=== PATIENT | male | born 1955 | race Hispanic/Latino ===

== ENCOUNTER → 2020-06-18 | Outpatient (CLI) | payer OTHER ==
[~2020-06-18] MED LIST: ACET-2113 PO; AMIO200T6 PO; ASPI-556 PO; CHOL4PAC21 PO; FISH1CAP49 PO; FURO40TA5 PO; GEMF600T5 PO; GLIP5TAB11 PO; ISOS60TA4 PO; LORA0.5T2 PO; LOSA50TA64 PO; METF-446 PO; METO-409 PO; NITR0.4T SL; OMEP20TA25 PO; PRAV40TA3 PO; RIVA20TA PO; [UNRECOGNIZED DRUG - CODE] PO
== END | disposition home or self-care (01) ==
LOC: RAH 06-13 12:44
PROVIDERS: ATTEND Internal Medicine Cardiovascular Disease
DX: J98.11 Atelectasis (principal); I51.7 Cardiomegaly; R05 Cough; Z95.0 Presence of cardiac pacemaker; Z98.890 Other specified postprocedural states
CPT/HCPCS: 71250

== ENCOUNTER 2023-04-05 05:44 | Day surgery (SDC) | payer OTHER ==
[2023-04-01 12:59] LABS: BASOPHILS # (AUTO) 0.03 K/uL (0.00-0.20); BASOPHILS % (AUTO) 0.4 % (0.0-5.0); EOSINOPHILS # (AUTO) 0.06 K/uL (0.00-0.70); EOSINOPHILS % (AUTO) 0.9 % (0.0-8.0); HEMATOCRIT 43.2 % (42-54); IMMATURE GRANULOCYTE ABSOLUTE 0.02 K/uL (0-1); LYMPHOCYTES # (AUTO) 1.8 K/uL (1.0-4.8); LYMPHOCYTES % (AUTO) 24.9 % (21.0-51.0); MEAN CORPUSCULAR HEMOGLOBIN 29.4 pg (27.0-33.0); MEAN CORPUSCULAR HGB CONC 32.6 g/dL (32.0-36.0); MEAN CORPUSCULAR VOLUME 90.2 fL (79-99); MONOCYTES # (AUTO) 0.5 K/uL (0.1-1.0); MONOCYTES % (AUTO) 6.8 % (3.0-13.0); NEUTROPHILS # (AUTO) 4.7 K/uL (1.8-7.7); NEUTROPHILS % (AUTO) 66.7 % (40.0-77.0); PLATELET COUNT (AUTO) 224 K/uL (130-400); RED BLOOD CELL COUNT(AUTO) 4.79 MIL/uL (4.50-6.20); RED CELL DISTRIBUTION WIDTH 14.1 % (11.0-15.5)
[2023-04-01 13:05] LABS: CREATININE 1.1 mg/dL (0.5-1.5); POTASSIUM 4.4 mmol/L (3.5-5.1)
[2023-04-01 13:06] LABS: INR 0.98 (0.85-1.15); PROTHROMBIN TIME 11.4 SEC (9.6-11.6)
[2023-04-01 13:07] LABS: PARTIAL THROMBOPLASTIN TIME 37.6 SEC (26.3-35.5)
[2023-04-01 13:34] VITALS: BP 127/55; PULSE 73; RESP 18
[2023-04-05] VITALS (9 sets, daily range): BP systolic 92–110; BP diastolic 49–53; PULSE 70–82; RESP 13–18
[~2023-04-05] VITALS: Ht 180.3 cm; Wt 110.0 kg
[~2023-04-05 05:44] MED LIST changes: +AMIO100T4 PO; -AMIO200T6 PO; -ASPI-556 PO; +BYDUREON SQ; +CARV25TA PO; -CHOL4PAC21 PO; +EMPA25TA PO; +FLUT16H NASAL; +FURO20TA4 PO; -FURO40TA5 PO; -GEMF600T5 PO; +GLIP10TA9 PO; -GLIP5TAB11 PO; -ISOS60TA4 PO; -LORA0.5T2 PO; -LOSA50TA64 PO; -METF-446 PO; -METO-409 PO; +MONT-39 PO; -OMEP20TA25 PO; +PANT40TA54 PO; -PRAV40TA3 PO; +ROSU40TA21 PO; +SACU1TAB7 PO; +SPIR25TA6 PO; +TRAV5DRO OP; -[UNRECOGNIZED DRUG - CODE] PO
[2023-04-05] MEDS ORDERED: 0.9%NACL 1000ML 1,000 ML IV ONE (06:11)
[2023-04-05] MEDS ORDERED: LIDOCAINE HCL 1% MDV 50ML VIAL ONE (07:12)
[2023-04-05] MEDS ORDERED: MEPERIDINE-PF 25 MG/ML SYG ONE ×2 (07:12→07:56)
[2023-04-05] MEDS ORDERED: IOHEXOL-350 50ML VIAL IV ONE (07:13)
[2023-04-05] MEDS ORDERED: MIDAZOLAM HCL 1 MG/ML 2ML VIAL ONE ×2 (07:13→07:56)
[2023-04-05] MEDS ORDERED: BUPIVACAINE/PF 0.25% 30ML VIAL IJ ONE (07:13)
[2023-04-05] MEDS ORDERED: CEFAZOLIN SODIUM 1 GM VIAL ONE (07:27)
[2023-04-05] MEDS ORDERED: BACITRACIN 1 EACH PACKET TP ONE (08:19)
[2023-04-05] MEDS ORDERED: ACETAMINOPHEN WITH CODEINE 1 TAB TAB PO PRN (08:30)
[2023-04-05] MEDS ORDERED: ACETAMINOPHEN 500 MG TABLET PO PRN (08:30)
[2023-04-05] MEDS ORDERED: TRAM50TA4 PO (08:36)
== END 2023-04-05 11:30 | disposition home or self-care (01) ==
LOC: DAH 05:44
PROVIDERS: ATTEND Internal Medicine Cardiovascular Disease
DX: Z45.02 Encounter for adjustment and management of automatic implantable cardiac defibrillator (principal); I25.5 Ischemic cardiomyopathy; I48.0 Paroxysmal atrial fibrillation; I48.92 Unspecified atrial flutter; I10 Essential (primary) hypertension; E11.9 Type 2 diabetes mellitus without complications; E78.5 Hyperlipidemia, unspecified; E66.9 Obesity, unspecified; I25.2 Old myocardial infarction; Z79.01 Long term (current) use of anticoagulants; Z90.49 Acquired absence of other specified parts of digestive tract; Z83.3 Family history of diabetes mellitus; Z82.49 Family history of ischemic heart disease and other diseases of the circulatory system; Z68.34 Body mass index [BMI] 34.0-34.9, adult
CPT/HCPCS: 80048; 85025; 85610; 85730; 36415; 93005; 33264; 82948 ×2; C1882; J0690; J7030; J3490 ×2; J2250 ×2; J2175 ×2; A4215; A6251; A4222; A4221; A4663; A4216; A6258; A4606; A4223 ×3; 99156; 99157; Q9967

== ENCOUNTER → 2023-06-07 | Outpatient (CLI) | payer OTHER ==
[~2023-06-07] MED LIST changes: +TRAM50TA4 PO
== END | disposition home or self-care (01) ==
LOC: SHCH 13:51
PROVIDERS: ATTEND Internal Medicine Cardiovascular Disease
DX: I35.0 Nonrheumatic aortic (valve) stenosis (principal); I25.5 Ischemic cardiomyopathy; I11.9 Hypertensive heart disease without heart failure; E78.5 Hyperlipidemia, unspecified; E11.9 Type 2 diabetes mellitus without complications
CPT/HCPCS: 93306

== ENCOUNTER 2024-10-02 06:10 | Day surgery (SDC) | payer OTHER ==
[2024-09-28 08:33] LABS: BASOPHILS # (AUTO) 0.03 K/uL (0.00-0.20); BASOPHILS % (AUTO) 0.4 % (0.0-5.0); EOSINOPHILS # (AUTO) 0.09 K/uL (0.00-0.70); EOSINOPHILS % (AUTO) 1.1 % (0.0-8.0); HEMATOCRIT 37.4 % (42-54); IMMATURE GRANULOCYTE ABSOLUTE 0.02 K/uL (0-1); LYMPHOCYTES # (AUTO) 1.2 K/uL (1.0-4.8); LYMPHOCYTES % (AUTO) 14.3 % (21.0-51.0); MEAN CORPUSCULAR HEMOGLOBIN 28.9 pg (27.0-33.0); MEAN CORPUSCULAR HGB CONC 32.4 g/dL (32.0-36.0); MEAN CORPUSCULAR VOLUME 89.3 fL (79-99); MONOCYTES # (AUTO) 0.6 K/uL (0.1-1.0); MONOCYTES % (AUTO) 7.1 % (3.0-13.0); NEUTROPHILS # (AUTO) 6.2 K/uL (1.8-7.7); NEUTROPHILS % (AUTO) 76.9 % (40.0-77.0); PLATELET COUNT (AUTO) 258 K/uL (130-400); RED BLOOD CELL COUNT(AUTO) 4.19 MIL/uL (4.50-6.20); RED CELL DISTRIBUTION WIDTH 14.2 % (11.0-15.5)
[2024-09-28 08:42] LABS: CREATININE 1.3 mg/dL (0.5-1.3); POTASSIUM 4.5 mmol/L (3.5-5.1)
[2024-09-28 08:45] LABS: INR 1.54 (0.85-1.15); PROTHROMBIN TIME 15.6 SEC (9.6-11.6)
[2024-09-28 08:46] LABS: PARTIAL THROMBOPLASTIN TIME 53.8 SEC (26.3-35.5)
[2024-09-28 11:09] VITALS: BP 111/47; PULSE 82; RESP 18; TEMP 97.9
--- NOTE | 2024-09-28 15:20 | EKG ---
[facility] Test Date: 2024-09-28 Test Time: 08:22:21 Pat Name: SOLOMON CAMACHO Department: [facility] Room: [facility] Gender: M Data Entry: [id number] : 1955 Requested By: YAJAIRA PADILLA Order Number: [id number] Reading MD: Heriberto Forde Measurements Intervals [place] Rate: 96 P: 0 RI: 0 QRS: 45 QRSD: 203 T: 171 QT: 507 QTc: 640 Interpretive Statements Afib/flut and V-paced complexes Biventricular paced rhythm Compared to ECG 08/13/2024 18:33:19 Ventricular premature complex(es) no longer present AV dual-paced complex(es) or rhythm no longer present Electronically Signed On 10-03-2024 07:15:19 CDT by Heriberto Forde Please click the below link to view image of tracing.
--- NOTE | 2024-10-01 10:02 | NUR ---
RE: LABS REPORTED PT/INR/PTT RESULTS TO DR PADILLA, NO NEW ORDERS RECEIVED.
[2024-10-02] VITALS (17 sets, daily range): BP systolic 97–126; BP diastolic 50–59; PULSE 70–86; RESP 15–21; TEMP 97–97.6
[~2024-10-02] VITALS: Ht 180.3 cm; Wt 111.9 kg
[~2024-10-02 06:10] MED LIST changes: -ACET-2113 PO; -AMIO100T4 PO; -BYDUREON SQ; +CARV12.511 PO; -CARV25TA PO; +DRON400T7 PO; +FINA5TAB41 PO; -FISH1CAP49 PO; -FLUT16H NASAL; +GLIP10TA16 PO; -GLIP10TA9 PO; +PANT20TA18 PO; -PANT40TA54 PO; -ROSU40TA21 PO; +ROSU40TA88 PO; +TAMS-55 PO; +TIRZ5PEN SQ; -TRAM50TA4 PO; -TRAV5DRO OP
[2024-10-02] MEDS: 0.9%NACL 1000ML 1,000 ML IV SCH (07:04)
--- NOTE | 2024-10-02 08:16 | NUR ---
skin integrity: dr. saha viewed rash to right groin area, ok to proceed with procedure.
[2024-10-02] MEDS ORDERED: LIDOCAINE HCL 400MG/20ML VIAL ONE ×2 (11:34→12:40)
[2024-10-02] MEDS ORDERED: HEParin 10,000 UNIT/10ML (1,000 UNIT/ML) VIAL ONE (11:34)
[2024-10-02] MEDS ORDERED: SODIUM BICARB 50MEQ 50ML VIAL 50 ML ONE (11:35)
[2024-10-02] MEDS ORDERED: HEParin-NS 1,000 UNIT/500 ML 500 ML IV ONE ×2 (11:35→12:16)
[2024-10-02] MEDS ORDERED: MIDAZOLAM HCL 1 MG/ML 2ML VIAL ONE (11:43)
[2024-10-02] MEDS ORDERED: proPOFol 10 MG/ML 20ML VIAL IV ONE (11:45)
[2024-10-02] MEDS ORDERED: rocuRONium bROMide 10MG/1ML 5ML VL ONE (11:45)
[2024-10-02] MEDS ORDERED: FENTanyl CITRate PF 50 MCG/1 ML 2ML VIAL ONE ×2 (11:46→14:13)
[2024-10-02] MEDS ORDERED: phenylEPHRINE HCL 10 MG/ML 1ML VIAL IV ONE (12:04)
[2024-10-02] MEDS ORDERED: ePHEDrine SULFate 50 MG/ML AMPULE ONE (12:43)
[2024-10-02] MEDS ORDERED: ISOPROTERENOL HCL 0.2 MG/ML AMP/VIAL/BAG ONE (13:38)
[2024-10-02] MEDS ORDERED: GLYCOPYRROLATE 0.2 MG/ML 5 ML VIAL ONE (14:12)
[2024-10-02] MEDS ORDERED: ondanSETRON 4MG INJ ONE (14:13)
[2024-10-02] MEDS ORDERED: NEOSTIGMINE METHYLSULFATE 1MG/ML IV ONE (14:13)
[2024-10-02] MEDS ORDERED: AMIOdarone 150MG VIAL ONE (14:35)
--- NOTE | 2024-10-02 17:44 | NUR ---
Bilateral groin sites clean, dry and intact. No sign of bleeding, bruising or hematoma. Right groin remains with mildly red rash skin intact. Full and complete discharge instructions given to Patient and Family both verbally and in writing. All questions answered. PIV dc'd with catheter tip intact. Patient aox4. Denies any discomfort or pressure. EKG done and viewed by Dr. Hernandez. Son at side appearing supportive. W/C to POV to home with Son.
--- NOTE | 2024-10-03 06:49 | EKG ---
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
== END 2024-10-02 18:30 | disposition home or self-care (01) ==
LOC: DAH 06:10
PROVIDERS: ATTEND Internal Medicine Cardiovascular Disease
DX: I47.29 Other ventricular tachycardia (principal); I49.3 Ventricular premature depolarization; I10 Essential (primary) hypertension; I25.2 Old myocardial infarction; I25.5 Ischemic cardiomyopathy; N40.0 Benign prostatic hyperplasia without lower urinary tract symptoms; E11.9 Type 2 diabetes mellitus without complications; I48.0 Paroxysmal atrial fibrillation; I45.10 Unspecified right bundle-branch block; E78.5 Hyperlipidemia, unspecified; E66.9 Obesity, unspecified; Z68.34 Body mass index [BMI] 34.0-34.9, adult; Z95.810 Presence of automatic (implantable) cardiac defibrillator; Z95.1 Presence of aortocoronary bypass graft; Z90.49 Acquired absence of other specified parts of digestive tract; Z79.899 Other long term (current) drug therapy; Z98.890 Other specified postprocedural states
CPT/HCPCS: 80048; 85025; 85610; 85730; 36415; 93005 ×2; 93620; 93623; 93287; 82948 ×2; C1894 ×6; C1732; C1730 ×2; A4649 ×2; J3010 ×2; J3490 ×7; J7030; J1644 ×3; J2250; J2704; J2405; J2710; J2371; J0282; A4215; A4222; A4221; A4663; A4216; A4606; C1760 ×5; A4223 ×3

== ENCOUNTER 2024-11-08 02:54 | Emergency (ER) | payer OTHER ==
[~2024-11-08] VITALS: Ht 180.3 cm; Wt 113.9 kg
[2024-11-08] MEDS: hydroMORPHone 0.5 MG SYG (0.5MG/0.5ML) IVP ONE (03:28)
[2024-11-08] MEDS: CYCLOBENZAPRINE HCL 10 MG TABLET PO ONE (03:28)
[2024-11-08] MEDS: Solu-medROL 40MG VIAL IVP ONE (03:28)
[2024-11-08 03:47] VITALS: BP 132/65; PULSE 88; RESP 15; TEMP 98.5; O2SAT 99
--- NOTE | 2024-11-08 04:07 | ERN ---
ED Note History of Present Illness Stated Complaint: C/O MID BACK PAIN WITH SOB Chief Complaint: Back Pain-No Injury Time Seen by MD: 03:04 Dictation: This is a 69-year-old morbidly obese male who presented to the emergency room for evaluation of back pain. He stated that he has had right lower back pain for many months and the pain is intensified in the past 1 week. He was seen by his primary care physician who apparently did a urinalysis and told him that his kidney function was okay and there was no evidence of any UTI. They gave him pain medicine. He comes back in today stating that the pain was worse and he could not sleep or get comfortable in any position. He denied any tingling numbness weakness of the legs. No history of any fall. No bladder or bowel incontinence. Pain is mostly located in the right lumbar area. He stated that when he tries to take a deep breath the back pain is worse. No burning micturition no hematuria or dysuria. Temperature 97.6� pulse 78 respirations 20 blood pressure 134/72 with a pulse oximetry of 95% on room air His chronic medical problems include diabetes mellitus, hypertension, coronary artery disease, coronary artery bypass surgery in 2007, atrial fibrillation, AICD pacemaker placement Allergies: Coded Allergies: No Known Allergies (Unverified Allergy, Unknown, 08/09/14) Home Meds Reported Medications Empagliflozin (Jardiance) 25 Mg Tablet, 25 MG PO DAILY, TAB 09/28/24 Dronedarone Hydrochloride (Multaq) 400 Mg Tablet, 400 MG PO BID, TAB 09/28/24 Tamsulosin HCl (Flomax) 0.4 Mg Cap.er.24h, 0.4 MG PO HS, CAPSULE.DR 08/09/24 Finasteride (Finasteride) 5 Mg Tablet, 5 MG PO HS, TAB 08/09/24 Carvedilol (Carvedilol) 12.5 Mg Tablet, 12.5 MG PO BID, TAB 08/09/24 Tirzepatide (Mounjaro) 5 Mg/0.5 Ml Pen.injctr, 5 MG SQ QWEEK Tuesday08/09/24 Pantoprazole Sodium (Pantoprazole Sodium) 20 Mg Tablet.dr, 20 MG PO DAILY, TAB 08/09/24 Glipizide (Glipizide) 10 Mg Tablet, 20 MG PO DAILY, TAB 04/04/23 Rosuvastatin Calcium (Rosuvastatin Calcium) 40 Mg Tablet, 40 MG PO HS, TAB 04/04/23 Montelukast Sodium (Montelukast Sodium) 10 Mg Tablet, 10 MG PO HS, TAB 04/04/23 Spironolactone (Spironolactone) 25 Mg Tablet, 25 MG PO DAILY, TAB 04/04/23 Sacubitril/Valsartan (Entresto 49 mg-51 mg Tablet) 49 Mg-51 Mg Tablet, 1 EACH PO BID, TAB 04/04/23 Glipizide (Glipizide) 10 Mg Tablet, 10 MG PO HS, TAB 04/04/23 Furosemide (Furosemide) 20 Mg Tablet, 20 MG PO DAILY, TAB 04/04/23 Nitroglycerin (Nitrostat) 0.4 Mg Tab.subl, 0.4 MG SL AD PRN for CHEST PAIN, TAB.SL 08/09/14 Rivaroxaban (Xarelto) 20 Mg Tablet, 20 MG PO HS, TAB 08/09/14 Past Medical History Past Medical History: Diabetes-Type II, Heart Disease, Hypertension Additional Past Medical Hx: OPEN HEART (2007); QUINDRUPLE BYPASS Surgical History: Pacer/AICD, Other Family History: Negative Social History: Negative RN Note Reviewed/Agreed w/PFSH: Yes Review of System Dictation Constitutional: Negative for fever,chills, and weight loss Eyes: Negative for injury, pain,redness, and discharge ENT: Negative for injury,pain or swelling Cardiovascular: Negative for chest pain, palpitations, and edema Respiratory: Negative for shortness of breath, cough, and wheezing, Abdomen/GI: Negative for abdominal pain, nausea, vomiting, diarrhea, and constipation Back: Negative for injury and positive for chronic back pain however got worse over the past few weeks : Negative for injury, bleeding and discharge MS/Extremity: Negative for injury and deformity Skin: Negative for rash, and discoloration Neuro: Negative for headache, weakness, numbness, tingling, and seizure Psych: Negative for suicide ideation, homicidal ideation, and hallucinations Initial Vital Sign VS Vital Signs Date Time Temp Pulse Resp B/P (MAP) Pulse Ox O2 Delivery O2 Flow Rate FiO2 11/08/24 02:57 97.5 78 20 134/72 95 Room Air 11/08/24 03:47 0 21 Physical Exam Dictation General: awake, alert, NAD morbidly obese male uncomfortable from pain and unable to position in the stretcher Head/Face: Normocephalic, atraumatic Eyes: PERRL, EOMI, vision at baseline ENT: oral cavity clear, TMs clear, no signs of infection Neck: Trachea midline, supple, no nuchal rigidity Cardiovascular: RRR, normal S1/S2, No MRGs, no JVD Respiratory: CTAB, no respiratory distress, No rales or wheezes Abdomen: Soft, non-tender, non-distended, normal bowel sounds, no guarding or rebound. Skin: Warm, dry, normal turgor, no rash Back-right psoas muscle spasm and tenderness in the lumbar area only to deep palpation and with movement MS/Extremity: Pulses equal, no cyanosis, neurovascular intact, FROM Neuro: COAx4, GCS 15, strength 5/5, CN 2-12 intact, normal cerebellar exam, normal gait, Psych: Normal behavior, mood, and affect normal Extremities-trace edema without any palpable cords, Homans sign is negative ED Course ED Course Orders Procedure Category Date Status Time Methylprednisolone PHA 11/08/24 Complete Succ 40mg (Solu-Medro 03:30 Cyclobenzaprine Hcl PHA 11/08/24 Complete (Cyclobenzaprine Hcl 03:30 Hydromorphone 0.5mg PHA 11/08/24 Complete Syg (Dilaudid 0.5mg 03:30 Current Medications Medications (Trade) Dose Ordered Sig/[place] Route PRN Reason Start Time Stop Time Status Last Admin Dose Admin Cyclobenzaprine HCl (Cyclobenzaprine HCl) 10 mg ONCE ONCE PO 11/08/24 03:30 11/08/24 03:31 DC 11/08/24 03:28 Hydromorphone HCl (DiLAUDid 0.5MG INJ) 0.5 mg ONCE ONCE IVP 11/08/24 03:30 11/08/24 03:31 DC 11/08/24 03:28 Methylprednisolone Sodium Succinate (Solu-medROL 40MG) 40 mg ONCE ONCE IVP 11/08/24 03:30 11/08/24 03:31 DC 11/08/24 03:28 Vital Signs Date Time Temp Pulse Resp B/P (MAP) Pulse Ox O2 Delivery O2 Flow Rate FiO2 11/08/24 03:47 98.4 88 15 132/65 99 Room Air* 0 21 11/08/24 02:57 97.5 78 20 134/72 95 Room Air I had a long discussion with him and daughter that something acute were sent the chronic back pain. No signs of any UTI by history and most of the history suggestive of musculoskeletal etiology. We will give a trial of steroid muscle relaxant and pain medication With all his multiple comorbidities we will avoid NSAIDs at this time. 4:34 a.m. patient admits to feeling significantly improved and is ready to be discharged to home. He already has Tylenol No. 3 prescription given by his PCP Medical Decision Making MDM MDM: Differential diagnosis: Lumbar radiculopathy, paraspinal muscle spasm, pyelonephritis, renal colic Rationale: Tests considered and ordered secondary to shared decision making inc lude: Previous outside records reviewed: Old ER visits. Risk of complication and/or morbidity or mortality of patient management: None Medications-Per medication reconciliation Need for hospitalization: Patient does not meet criteria for hospitalization. Need for emergency major/minor surgery: No There are no social concerns with this patient. Prescription drug management Prescriptions will include symptomatic care Patient's prior external medical records from other ER visits were reviewed by me as indicated. Prior testing and results from previous visits were reviewed. Prior tests were taken into account with medical decision making and resource utilization, independent historian/historians were used to obtain complete medical history. I independently interpreted the test that were performed, results were reviewed by me and considered findings on radiology if ordered. Medical management and examination interpretation discussions were had by me with other qualified healthcare professionals as indicated for the patient's care. Problem List Problem List: (1) Lumbar radiculopathy, chronic (2) Lumbar paraspinal muscle spasm DX & DISP Disposition: Discharge Departure Impression: Primary Impression: Lumbar radiculopathy, chronic Additional Impression: Lumbar paraspinal muscle spasm Condition: Stable Scripts Cyclobenzaprine HCl (Cyclobenzaprine HCl) 10 Mg Tablet 1 TAB PO TID for muscle spasms for 10 Days, #30 TAB 0 Refills Prov: MATTHEW MOSS MD 11/08/24 Prednisone (Prednisone) 20 Mg Tablet 1 TAB PO AD for 6 Days, #14 TAB 0 Refills TAKE 1 TAB BY MOUTH THREE TIMES PER DAY X3 DAYS, THEN TAKE 1 TAB BY MOUTH TWICE A DAY X2 DAYS, THEN TAKE 1 TAB BY MOUTH ONCE A DAY X1 DAY. Prov: MATTHEW MOSS MD 11/08/24 Additional Instructions: Patient and the caregiver have been informed of all the diagnostic tests and the imaging conducted during the today's visit to the emergency room and has verba lized understanding of the results I have personally reviewed and interpreted all diagnostic exams performed here in the ER today as well as the vital signs documented by the nursing staff. The patient is now being discharged to home and should follow up with the primary care physician or the specialist as directed by the ER staff. Follow-up with primary care provider in 1 to 2 days. Take medications as directed here in the emergency room. Okay to continue home medications unless otherwise discussed during your visit in the emergency room today. Return to your nearest emergency room if symptoms worsen or if there is no improvement. Call 911 if you need immediate assistance. Take Tylenol or Motrin [id number] as needed and if no contraindications are present. Increase oral hydration. A wound culture or urine culture was ordered here in the emergency room department please follow-up with primary care provider and advise them to get repeat ports from our facility. If you had any [place] wrap/splints t hat were applied here, please do not remove them until you see your primary care or specialty. Referrals: TONY PEREZ MD (PCP) MATTHEW MOSS MD November 08, 2024 04:07
[2024-11-08] MEDS ORDERED: CYCL-309 PO (04:31)
[2024-11-08] MEDS ORDERED: PRED20TA3 PO (04:31)
== END 2024-11-08 04:55 | disposition home or self-care (01) ==
LOC: EDH 02:54
DX: M54.16 Radiculopathy, lumbar region (principal); M62.830 Muscle spasm of back; E11.9 Type 2 diabetes mellitus without complications; I10 Essential (primary) hypertension; Z79.84 Long term (current) use of oral hypoglycemic drugs; Z79.85 Long-term (current) use of injectable non-insulin antidiabetic drugs; Z79.899 Other long term (current) drug therapy; Z95.810 Presence of automatic (implantable) cardiac defibrillator
CPT/HCPCS: 99284; 96374; 96375; J2919; J1171

== ENCOUNTER 2024-11-27 07:34 | Day surgery (SDC) | payer OTHER ==
[2024-11-26 09:44] LABS: BASOPHILS # (AUTO) 0.04 K/uL (0.00-0.20); BASOPHILS % (AUTO) 0.7 % (0.0-5.0); EOSINOPHILS # (AUTO) 0.06 K/uL (0.00-0.70); HEMATOCRIT 39.4 % (42-54); IMMATURE GRANULOCYTE ABSOLUTE 0.02 K/uL (0-1); LYMPHOCYTES # (AUTO) 1.4 K/uL (1.0-4.8); LYMPHOCYTES % (AUTO) 23.8 % (21.0-51.0); MEAN CORPUSCULAR HEMOGLOBIN 28.1 pg (27.0-33.0); MEAN CORPUSCULAR HGB CONC 31.7 g/dL (32.0-36.0); MEAN CORPUSCULAR VOLUME 88.5 fL (79-99); MONOCYTES # (AUTO) 0.4 K/uL (0.1-1.0); NEUTROPHILS % (AUTO) 67.2 % (40.0-77.0); PLATELET COUNT (AUTO) 206 K/uL (130-400); RED BLOOD CELL COUNT(AUTO) 4.45 MIL/uL (4.50-6.20); RED CELL DISTRIBUTION WIDTH 14.7 % (11.0-15.5)
[2024-11-26 09:51] LABS: CREATININE 1.1 mg/dL (0.5-1.3); POTASSIUM 4.4 mmol/L (3.5-5.1)
[2024-11-26 10:19] VITALS: BP 124/61; PULSE 82; RESP 18; TEMP 97.3
[~2024-11-27] VITALS: Ht 180.3 cm; Wt 110.9 kg
[2024-11-27] VITALS (7 sets, daily range): BP systolic 85–105; BP diastolic 40–55; PULSE 70–89; RESP 14–17; TEMP 97.3
[~2024-11-27 07:34] MED LIST changes: +AMIO200T73 PO; -DRON400T7 PO; +FISH OIL PO; +FLUT16H NS; +TRAV2.5D6 OP; +TYLENOL ARTHRITIS PO
[2024-11-27] MEDS ORDERED: proPOFol 10 MG/ML 20ML VIAL IV ONE (08:57)
--- NOTE | 2024-11-27 10:40 | EKG ---
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1955 Requested By: YAJAIRA PADILLA Order Number: [id number] Reading MD: Aydin Ramires Measurements Intervals [place] Rate: 87 P: 0 ND: 0 QRS: 34 QRSD: 187 T: 181 QT: 472 QTc: 569 Interpretive Statements Biventricular paced rhythm Atrial fibrillation Ventricular premature complex IVCD, consider LBBB ST elevation secondary to IVCD Compared to ECG 10/02/2024 16:09:13 Ventricular premature complex(es) now present Intraventricular conduction delay now present ST (T wave) deviation now present AV dual-paced complex(es) or rhythm no longer present Electronically Signed On 11-27-2024 19:43:04 CDT by Aydin Ramires Please click the below link to view image of tracing.
--- NOTE | 2024-11-27 11:12 | NUR ---
PT SYNCHRONIZED CARDIOVERTED [address] PADILLA PT TOLERATED WELL. BOTH DR. PADILLA AND BIOTRONIK REP AT BEDSIDE WITH BIOTRONIK INTERROGATOR. PT TOLERATED WELL VSS NAD
--- NOTE | 2024-11-27 11:20 | NUR ---
PT AWAKE VSS NAD
--- NOTE | 2024-11-27 12:30 | NUR ---
BOTH PT AND DAUGHTER GIVEN VERBAL AND WRITTEN DISCHARGE INSTRUCTIONS. IV REMOVED SITE ASYMPTOMATIC. PT WHEELED OUTSIDE DAUGHTER DRIVING
--- NOTE | 2024-11-27 17:08 | EKG ---
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 : 1955 Requested By: YAJAIRA PADILLA Order Number: [id number] Reading MD: Aydin Ramires Measurements Intervals [place] Rate: 70 P: 0 ND: 143 QRS: -88 QRSD: 137 T: 69 QT: 457 QTc: 493 Interpretive Statements Atrial-ventricular dual-paced complexes Biventricular paced rhythm Compared to ECG 11/27/2024 08:05:28 Atrial fibrillation no longer present Ventricular premature complex(es) no longer present Intraventricular conduction delay no longer present ST (T wave) deviation no longer present Electronically Signed On 11-27-2024 19:44:37 CDT by Aydin Ramires Please click the below link to view image of tracing.
--- NOTE | 2024-12-12 14:21 | PRN ---
Procedure Note INDICATION FOR PROCEDURE: Persistent atrial fibrillation PROCEDURE: Cardioversion DATE OF PROCEDURE: 11/27/2024 VOCAL PERFORMER: Dr. Jaylen Padilla PROCEDURE NOTE: The patient was brought to the day patient area in a fasting state. His device was interrogated and reprogrammed. General anesthesia was provided by the anesthesia service. A synchronized shock of 200 J resulting in sinus rhythm/atrial pacing. The patient tolerated the procedure well and there were no complications. IMPRESSION: Persistent atrial fibrillation status post successful cardioversion PLAN: The patient will continue current medications and follow-up with me in the office in approximately 2 weeks. JAYLEN PADILLA MD Dec 12, 2024 14:21
== END 2024-11-27 12:35 | disposition home or self-care (01) ==
LOC: DAH 07:34
PROVIDERS: ATTEND Internal Medicine Cardiovascular Disease
DX: I48.19 Other persistent atrial fibrillation (principal); I25.10 Atherosclerotic heart disease of native coronary artery without angina pectoris; I25.5 Ischemic cardiomyopathy; I48.0 Paroxysmal atrial fibrillation; I10 Essential (primary) hypertension; I25.2 Old myocardial infarction; I49.3 Ventricular premature depolarization; I48.92 Unspecified atrial flutter; I48.91 Unspecified atrial fibrillation; E78.5 Hyperlipidemia, unspecified; E11.9 Type 2 diabetes mellitus without complications; G47.33 Obstructive sleep apnea (adult) (pediatric); E66.9 Obesity, unspecified; Z95.1 Presence of aortocoronary bypass graft; Z95.810 Presence of automatic (implantable) cardiac defibrillator; Z98.890 Other specified postprocedural states; Z79.899 Other long term (current) drug therapy; Z68.34 Body mass index [BMI] 34.0-34.9, adult; Z90.49 Acquired absence of other specified parts of digestive tract
CPT/HCPCS: 80048; 85025; 36415; 92960; 82948; 93005 ×2; J2704; A4620; A4215; A4223 ×3; A7002; A4222; A4221; A4663; A4216; A4606; J3490